=== PATIENT | male | born 2000 | race Two or more races ===

== ENCOUNTER 2022-01-26 23:25 | Emergency (ER) | payer OTHER ==
[~2022-01-26] VITALS: Ht 177.8 cm; Wt 72.6 kg
[2022-01-27] MEDS ORDERED: KETO10TA2 PO (02:47)
== END 2022-01-27 02:58 ==
LOC: ER 23:25
DX: S83.8X2A Sprain of other specified parts of left knee, initial encounter (principal); X50.1XXA Overexertion from prolonged static or awkward postures, initial encounter; Y93.66 Activity, soccer; Y92.322 Soccer field as the place of occurrence of the external cause; Y99.9 Unspecified external cause status